=== PATIENT | female | born 1990 | race Caucasian/White ===

== ENCOUNTER 2021-03-29 15:03 | Emergency (ER) | payer OTHER, SELFPAY ==
[2021-03-29 17:00] VITALS: BP 125/87; PULSE 85; RESP 18; TEMP 36.6; O2SAT 98; BMI 27.4
--- NOTE | 2021-03-29 17:20 | HMH.EDUTC ---
[facility] [place] Clinical Impression: COVID-19 virus test result unknown Disposition: Home, Self-Care Condition on Discharge: Good Instructions: DI for COVID-19 (Suspected or Confirmed ), Preventing the Spread of Coronavirus Discharge Instructions Additional Instructions: No sign of a bacterial infection. Likely viral. Viruses can take 7-14 days to run their course. Nasal saline and bulb syringe or nose Blanca to remove nasal drainage to help with nasal congestion. Hard to eat, drink, sleep with nasal congestion so important to keep this cleaned out. Monitor temp. Tylenol or Motrin as needed for pain or fever Encourage fluids, water, Gatorade, Powerade, Pedialyte if infant/toddler/child Warm salt water gargles Warm fluids Sore throat lozenges Sleep elevated Humidifier/vaporizer Follow-up immediately for new or worsening symptoms or no noticeable improvement over the next 48-72 hours. covid swab was sent to lab, call later today for results. self isolate until test results are known to be negative Referrals: Provider,Referral, MD [Primary Care Provider] - Time of Disposition: 17:23 Medical Decision Making - Geovany Inquiry Pt receiving controlled substance: No Vital Signs: 03/29/21 17:00 Temperature 97.8 F Temperature Source Oral Pulse Rate [Right Brachial] 85 Respiratory Rate 18 Blood Pressure [Right Arm] 125/87 Blood Pressure Mean [Right Arm] 99 Blood Pressure Source [Right Arm] Automatic Cuff Blood Pressure Position [Right Arm] Sitting 02 Sat by Pulse Oximetry 98 Oxygen Delivery Method Room Air [facility] [place] - General Chief complaint: Urgent [facility] Stated complaint: covid test Time Seen by Provider: 03/29/21 17:20 Mode of Arrival: Ambulatory Source of Information: Patient Limitations: No Limitations Description of Symptoms (Recalled from Triage Doc. by RN): PATIENT C/O SORE THROAT, SINUS CONGESTION, AND LOSS OF TASTE AND SMELL THAT STARTED TUESDAY HEENT Symptoms (Recalled from RN notes): Yes Resp Symptoms (Recalled from RN notes): No Skin Symptoms (Recalled from RN notes): No MS Symptoms (Recalled from RN notes): No Functional Status (Recalled from RN notes): WNL - History of Present Illness Provider Complaint: 31 yr old female presents for cough,sore throat,nasal congestion and loss of taste and smell. needs covid test - Related Data Allergies Allergy/AdvReac Type Severity Reaction Status Date / Time No Known Allergies Allergy Verified 03/29/21 17:18 - Worker's Comp Is this a Worker's Comp case?: No [facility] History - Hepatitis A Screen Drug use history?: No High risk sexual behaviors?: No History of sexually transmitted infection?: No Currently employed?: No Childcare worker?: No Do you have indoor plumbing?: Yes Do you have electricity?: Yes Attestation statement:: This patient has been screened for Hepatitis A risk factors. I have reviewed the patient's past medical history: Yes ROS Obtained: Yes Systems reviewed as appropriate & no additional complaints - Constitutional Constitutional: Reports system reviewed and no additional complaints, except as docu, Denies chills, Denies fever(s) - Eyes Eyes: Reports system reviewed and no additional complaints, except as docu, Denies eye pain - ENT Ears, Nose, Mouth, and Throat: Reports system reviewed and no additional complaints, except as docu, Reports nasal congestion, Reports nasal discharge, Reports sinus pressure, Reports sore throat - Cardiovascular Cardiovascular: Reports system reviewed and no additional complaints, except as docu, Denies chest pain - Respiratory Respiratory: Reports system reviewed and no additional complaints, except as docu, Denies shortness of breath - Gastrointestinal Gastrointestingal: Reports: system reviewed and no additional complaints, except as docu. Denies: bloating - Genitourinary Female Genitourinary: Reports system reviewed and no additional complaints, except as docu - Muscul
[2021-03-29 17:35] VITALS: BP 125/87; PULSE 85; RESP 18; TEMP 36.6; O2SAT 98
--- NOTE | 2021-03-29 22:35 | PC.NURSE ---
PATIENT NOTIFIED OF POSITIVE COVID TEST AT THIS TIME
== END 2021-03-29 17:43 | disposition home or self-care (01) ==
PROVIDERS: Emergency Provider Nurse Practitioner Family
DX: U07.1 COVID-19 (principal)
CPT/HCPCS: 99202; G0463; U0003